=== PATIENT | female | born 1980 | race African-American/Black ===

== ENCOUNTER 2016-11-14 09:12 | Emergency (ER) | payer SELFPAY ==
[2016-11-14] MEDS ORDERED: Ketorolac Tromethamine 60 MG/2 ML VIAL ONE (09:55)
--- NOTE | 2016-11-14 10:16 | RAD ---
RIGHT SHOULDER 3 VIEWS: HISTORY: Right shoulder pain. FINDINGS/IMPRESSION: There are degenerative changes in the acromioclavicular joint. No fracture, dislocation, or bony de struction is seen. There is a focal density adjacent to the greater tuberosity suspicious for calci fic tendinosis. POS: SUKUMAR
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
== END 2016-11-14 10:50 | disposition home or self-care (01) ==
LOC: NAV ERS 09:12
DX: M25.511 Pain in right shoulder (principal); J45.909 Unspecified asthma, uncomplicated; E66.9 Obesity, unspecified; D64.9 Anemia, unspecified
CPT/HCPCS: 96372; J1885